=== PATIENT | female | born 1985 | race Caucasian/White ===

== ENCOUNTER → 2016-03-13 | Outpatient (REF) | payer OTHER ==
[~2016-03-13] MED LIST: /RANI15TA PO; IBUP600T26 PO; LORTTAB8 PO; PRENTAB74 PO
[2016-03-13 20:50] LABS: ALBUMIN 3.9 GM/DL (3.2-5.2); ALBUMIN/GLOBULIN RATIO 1.03 (1.00-1.93); ALKALINE PHOSPHATASE 100 U/L (45-117); ALT/SGPT 27 U/L (12-78); ANION GAP 7 MEQ/L (8-16); AST/SGOT 16 U/L (15-37); BILIRUBIN,TOTAL 0.3 MG/DL (0.2-1.0); BLOOD UREA NITROGEN 13 MG/DL (7-18); CALCIUM LEVEL 9.3 MG/DL (8.5-10.1); CARBON DIOXIDE LEVEL 27 MEQ/L (21-32); CHLORIDE LEVEL 105 MEQ/L (98-107); GLOMERULAR FILTRATION RATE > 60.0 (>60); GLUCOSE, FASTING 80 MG/DL (70-105); POTASSIUM SERUM 3.8 MEQ/L (3.5-5.1); SODIUM LEVEL 139 MEQ/L (136-145); TOTAL PROTEIN 7.7 GM/DL (6.4-8.2)
== END ==
LOC: M SFHCLERA 15:35
PROVIDERS: ATTEND Family Medicine
DX: R10.11 Right upper quadrant pain (principal); R19.7 Diarrhea, unspecified

== ENCOUNTER → 2016-03-15 | Outpatient (CLI) | payer OTHER ==
--- NOTE | 2016-03-15 10:31 | REP ---
Right upper quadrant sonography: History: Right upper quadrant pain. Comparison study: No comparison study. Findings: Scanning through the right upper quadrant of the abdomen demonstrates a normal sized, thin-walled gallbladder without evidence of stone or polyp. Common bile duct is normal measuring 0.4 cm in greatest diameter. No focal liver lesion is seen. Liver size is normal. There is evidence of mild fatty infiltration in the right lobe of the liver. No pancreatic abnormality is observed. The tail of the pancreas is obscured by abdominal gas. No right renal abnormality is seen. There is no evidence of ascites. The right kidney measures 10.7 x 5.3 x 5.0 cm. Impression: Mild fatty infiltration, otherwise negative right upper quadrant sonography. Signed by Dionicio Fuller MD 03/15/2016 10:22 A
== END ==
LOC: M LRY 08:33
PROVIDERS: ATTEND Family Medicine
DX: R10.11 Right upper quadrant pain (principal); K76.0 Fatty (change of) liver, not elsewhere classified

== ENCOUNTER → 2016-11-18 | Outpatient (REF) | payer BC ==
[2016-11-18 17:53] LABS: ALBUMIN 3.6 GM/DL (3.2-5.2); ALBUMIN/GLOBULIN RATIO 0.92 (1.00-1.93); ALKALINE PHOSPHATASE 86 U/L (45-117); ALT/SGPT 24 U/L (12-78); ANION GAP 8 MEQ/L (8-16); AST/SGOT 12 U/L (15-37); BILIRUBIN,TOTAL 0.5 MG/DL (0.2-1.0); BLOOD UREA NITROGEN 12 MG/DL (7-18); CALCIUM LEVEL 9.3 MG/DL (8.5-10.1); CARBON DIOXIDE LEVEL 28 MEQ/L (21-32); CHLORIDE LEVEL 105 MEQ/L (98-107); CHOLESTEROL LEVEL 145 MG/DL (<200); CREATININE FOR GFR 1.02 MG/DL (0.55-1.02); GLOMERULAR FILTRATION RATE > 60.0 (>60); GLUCOSE, FASTING 88 MG/DL (70-105); POTASSIUM SERUM 4.2 MEQ/L (3.5-5.1); SODIUM LEVEL 141 MEQ/L (136-145); TOTAL PROTEIN 7.5 GM/DL (6.4-8.2); TRIGLYCERIDES LEVEL 77 MG/DL (<150)
== END ==
LOC: M SFHCLERA 10:57
PROVIDERS: ATTEND Family Medicine
DX: R53.83 Other fatigue (principal); Z13.220 Encounter for screening for lipoid disorders; Z13.1 Encounter for screening for diabetes mellitus

== ENCOUNTER 2016-12-06 10:51 | Outpatient (CLI) | payer BC ==
[~2016-12-06] VITALS: Ht 152.4 cm; Wt 104.3 kg
[2016-12-06] MEDS ORDERED: NS 1,000 ML IV ONE (11:45)
[2016-12-06] MEDS ORDERED: PROPOFOL 200 MG/20 ML VIAL As Ordered ONE ×2 (12:10→12:26)
[2016-12-06] MEDS ORDERED: LIDOCAINE 2% INJ 100 MG/5 ML SDV (FOR ANES.) As Ordered ONE (12:10)
--- NOTE | 2016-12-06 12:24 | ROOR ---
Patient Name: Maura Kimbrough Procedure Date: 12/06/2016 12:10 PM Date of : 1985 Age: 31 Room: [facility] Gender: Female Note Status: Finalized Procedure: Upper GI endoscopy Indications: Generalized abdominal pain, Established Lactose intolerance, Exclusion of celiac disease, Suspected irritable bowel syndrome Providers: Christofer SONG MD Referring MD: Scarlet OLIVAS MD Requesting Provider: Medicines: Monitored Anesthesia Care Complications: No immediate complications. Procedure: Pre-Anesthesia Assessment: - The heart rate, respiratory rate, oxygen saturations, blood pressure, adequacy of pulmonary ventilation, and response to care were monitored throughout the procedure. The Endoscope was introduced through the mouth, and advanced to the third part of duodenum. The upper GI endoscopy was accomplished without difficulty. The patient tolerated the procedure well. Findings: The esophagus was normal. The stomach was normal. The examined duodenum was normal. Biopsies for histology were taken with a cold forceps in the third portion of the duodenum for evaluation of celiac disease. Impression: - Normal esophagus. - Normal stomach. - Normal examined duodenum. - Biopsies were taken with a cold forceps for evaluation of celiac disease. Recommendation: - Observe patient's clinical course. - Lactose free diet. - Telephone endoscopist for pathology results in 2 weeks. Christofer Song MD Christofer SONG MD 12/06/2016 12:23:56 PM This report has been signed electronically. Number of Addenda: 0 Note Initiated On: 12/06/2016 12:10 PM Estimated Blood Loss: Estimated blood loss: none.
--- NOTE | 2016-12-06 12:38 | ROOR ---
Patient Name: Maura Kimbrough Procedure Date: 12/06/2016 12:10 PM Date of : 1985 Age: 31 Room: [facility] Gender: Female Note Status: Finalized Procedure: Colonoscopy Indications: Generalized abdominal pain, Suspected irritable bowel syndrome, Irritable bowel syndrome with diarrhea, Established Lactose intolerance, r/o Inflammatory bowel disease Providers: Christofer SONG MD Referring MD: Scarlet OLIVAS MD Requesting Provider: Medicines: Monitored Anesthesia Care Complications: No immediate complications. Procedure: Pre-Anesthesia Assessment: - The heart rate, respiratory rate, oxygen saturations, blood pressure, adequacy of pulmonary ventilation, and response to care were monitored throughout the procedure. The Colonoscope was introduced through the anus and advanced to 10 cm into the ileum. The colonoscopy was performed without difficulty. The patient tolerated the procedure well. The quality of the bowel preparation was good. Findings: The perianal and digital rectal examinations were normal. The colon (entire examined portion) appeared normal. The terminal ileum appeared normal. (Exam: Complete, Prep: Good or Excellent.) Impression: - (Exam: Complete, Prep: Good or Excellent.) - The entire examined colon is normal. - The examined portion of the ileum was normal. - Small internal hemorrhoids - No specimens collected. Recommendation: - Lactose free diet. - Try low gluten diet. - Continue present medications. Christofer Song MD Christofer SONG MD 12/06/2016 12:37:48 PM This report has been signed electronically. Number of Addenda: 0 Note Initiated On: 12/06/2016 12:10 PM Estimated Blood Loss: Estimated blood loss: none.
[2016-12-06 13:00] VITALS: BP 118/91
== END 2016-12-06 13:22 | disposition home or self-care (01) ==
LOC: M OPP 10:51
PROVIDERS: ATTEND Internal Medicine Gastroenterology
DX: R10.84 Generalized abdominal pain (principal); R19.7 Diarrhea, unspecified; K64.8 Other hemorrhoids; Z91.011 Allergy to milk products; Z87.891 Personal history of nicotine dependence; Z80.9 Family history of malignant neoplasm, unspecified; Z79.899 Other long term (current) drug therapy

== ENCOUNTER → 2017-04-15 | Outpatient (REF) | payer BC ==
[2017-04-15 17:58] LABS: HCG, SERUM QUANTITATIVE 4750 MIU/ML
[2017-04-15 18:22] LABS: HEMATOCRIT 42.5 % (36.0-47.0); HEMOGLOBIN 14.3 g/dl (12.0-16.0); MEAN CORPUSCULAR HEMOGLOBIN 30.4 pg (27.0-33.0); MEAN CORPUSCULAR HGB CONC 33.6 g/dl (32.0-36.5); MEAN CORPUSCULAR VOLUME 90.4 fl (80.0-96.0); PLATELET COUNT, AUTOMATED 369 10^3/uL (150-450); RED CELL DISTRIBUTION WIDTH 12.9 % (11.5-14.5); WHITE BLOOD COUNT 11.5 10^3/uL (4.0-10.0)
[2017-04-16 00:27] LABS: CHLAMYDIA DNA AMPLIFICATION NEGATIVE (NEGATIVE); GC DNA AMPLIFICATION NEGATIVE (NEGATIVE)
[2017-04-16 10:06] LABS: RUBELLA IgG QUALITATIVE IMMUNE (IMMUNE)
[2017-04-16 10:22] LABS: HBsAg Prenatal NEGATIVE (NEGATIVE)
[2017-04-16 10:35] LABS: HEPATITIS C VIRUS ABY INDEX 0.1 INDEX (<0.8)
[2017-04-16 10:36] LABS: HIV 1&2 SCREEN CENTAUR NEGATIVE (NEGATIVE)
== END ==
LOC: M LAB REF 16:25
DX: O36.80X0 Pregnancy with inconclusive fetal viability, not applicable or unspecified (principal); Z3A.00 Weeks of gestation of pregnancy not specified
CPT/HCPCS: 86762

== ENCOUNTER → 2017-05-27 | Outpatient (REF) | payer BC, MEDICAID | LOC: M LAB REF 12:49 | DX: R30.0 Dysuria (principal) | CPT/HCPCS: 87086 ==

== ENCOUNTER → 2017-06-23 | Outpatient (CLI) | payer BC, MEDICAID ==
[2017-06-23 10:32] LABS: HEMATOCRIT 38.9 % (36.0-47.0); HEMOGLOBIN 13.1 g/dl (12.0-15.5); MEAN CORPUSCULAR HGB CONC 33.7 g/dl (32.0-36.5); MEAN CORPUSCULAR VOLUME 89.2 fl (80.0-96.0); PLATELET COUNT, AUTOMATED 320 10^3/uL (150-450); RED BLOOD COUNT 4.36 10^6/uL (4.00-5.40); RED CELL DISTRIBUTION WIDTH 12.6 % (11.5-14.5); WHITE BLOOD COUNT 10.8 10^3/uL (4.0-10.0)
[2017-06-23 10:56] LABS: URINE TOTAL PROTEIN 11.2 MG/DL (0-12)
[2017-06-23 10:59] LABS: ALT/SGPT 22 U/L (12-78); AST/SGOT 16 U/L (7-37); BILIRUBIN,TOTAL 0.3 MG/DL (0.2-1.0); CREATININE FOR GFR 0.63 MG/DL (0.55-1.30); GLOMERULAR FILTRATION RATE > 60.0 (>60); LDH LACTATE DEHYDROGENASE 132 U/L (84-246); URIC ACID 3.3 MG/DL (2.6-6.0)
[2017-06-23 11:09] LABS: TOTAL VOLUME, URINE 1000 ML
== END ==
LOC: M LAB 09:38
DX: I10 Essential (primary) hypertension (principal)
CPT/HCPCS: 84460

== ENCOUNTER → 2017-09-18 | Outpatient (CLI) | payer BC, MEDICAID ==
[2017-09-18 13:13] LABS: GLUCOSE CHALLENGE TEST 1 HOUR 146 MG/DL (LESS THAN 140)
== END ==
LOC: M LAB 11:01
DX: Z34.82 Encounter for supervision of other normal pregnancy, second trimester (principal); Z36.89 Encounter for other specified antenatal screening
CPT/HCPCS: 82950

== ENCOUNTER → 2017-09-26 | Outpatient (CLI) | payer BC, MEDICAID ==
[2017-09-26 08:19] LABS: HEMATOCRIT 37.5 % (36.0-47.0); HEMOGLOBIN 12.9 g/dl (12.0-15.5); MEAN CORPUSCULAR HEMOGLOBIN 30.8 pg (27.0-33.0); MEAN CORPUSCULAR HGB CONC 34.4 g/dl (32.0-36.5); MEAN CORPUSCULAR VOLUME 89.5 fl (80.0-96.0); PLATELET COUNT, AUTOMATED 277 10^3/uL (150-450); RED BLOOD COUNT 4.19 10^6/uL (4.00-5.40); RED CELL DISTRIBUTION WIDTH 13.5 % (11.5-14.5); WHITE BLOOD COUNT 11.5 10^3/uL (4.0-10.0)
[2017-09-26 08:30] LABS: GLUCOSE, FASTING 98 MG/DL (LESS THAN 95)
[2017-09-26 10:04] LABS: 1 HR GLUCOSE 193 MG/DL (LESS THAN 180)
[2017-09-26 10:39] LABS: 2 HR GLUCOSE 133 MG/DL (LESS THAN 155)
[2017-09-26 11:28] LABS: 3 HR GLUCOSE 105 MG/DL (LESS THAN 140)
== END ==
LOC: M LAB 07:18
DX: O99.810 Abnormal glucose complicating pregnancy (principal); Z3A.00 Weeks of gestation of pregnancy not specified
CPT/HCPCS: 82951

== ENCOUNTER → 2017-11-13 | Outpatient (REF) | payer BC, MEDICAID | LOC: M LAB REF 13:31 | DX: O09.893 Supervision of other high risk pregnancies, third trimester (principal) | CPT/HCPCS: 87081 ==

== ENCOUNTER 2017-12-09 05:25 | Inpatient (IN) | payer BC, MEDICAID ==
[2017-12-09 06:13] LABS: HEMATOCRIT 38.2 % (36.0-47.0); MEAN CORPUSCULAR HEMOGLOBIN 30.2 pg (27.0-33.0); MEAN CORPUSCULAR VOLUME 88.6 fl (80.0-96.0); PLATELET COUNT, AUTOMATED 299 10^3/uL (150-450); RED BLOOD COUNT 4.31 10^6/uL (4.00-5.40); WHITE BLOOD COUNT 10.1 10^3/uL (4.0-10.0)
[2017-12-09] MEDS ORDERED: LR 1,000 ML IV (06:45)
[2017-12-09] MEDS: LR 1,000 ML IV ×2 (06:45→13:39)
[2017-12-09] MEDS: BICITRA 30ML SOLN UDC PO (07:18)
[2017-12-09] MEDS ORDERED: ONDANSETRON 4MG/2ML VIAL (J2405) IV ×3 (07:45→09:30)
[2017-12-09] MEDS ORDERED: NORCO, ANEXSIA 5/325MG TABLET (HYDROcodone/ACETAMINOPHEN) PO (07:45)
[2017-12-09] MEDS ORDERED: MOM 30ML SUSPENSION UDC PO (07:45)
[2017-12-09] MEDS ORDERED: METHYLERGONOVINE MALEATE 0.2 MG TAB PO (07:45)
[2017-12-09] MEDS ORDERED: NALBUPHINE HCL 10 MG/ML AMP (J2300) IV (07:58)
[2017-12-09] MEDS ORDERED: METOCLOPRAMIDE INJ 10MG/2ML VIAL (J2765) IV (07:58)
[2017-12-09] MEDS ORDERED: NALOXONE INJ 0.4 MG/1 ML VIAL (J2310) IV ×2 (07:58)
[2017-12-09] MEDS ORDERED: OXYTOCIN INJ 10 UNITS/ML VIAL (J2590) As Ordered (08:22)
[2017-12-09] MEDS ORDERED: KETOROLAC 60 MG/2 ML VIAL (J1885) As Ordered (08:22)
[2017-12-09] MEDS ORDERED: PHENYLephrine HCL 500 MCG/5 ML (100MCG/ML) SYRINGE (J2370) As Ordered (08:22)
[2017-12-09] MEDS ORDERED: MORPHINE PRES-FREE INJ 10 MG/10 ML VIAL (J2274) As Ordered (08:22)
[2017-12-09] MEDS ORDERED: ONDANSETRON 4MG/2ML VIAL (J2405) As Ordered (08:22)
[2017-12-09] MEDS ORDERED: dexameTHASONE 4 MG/ML 1ML VIAL (J1100) As Ordered (08:22)
[2017-12-09 08:51] LABS: CORD GAS ABE V -2.3; CORD GAS HCO3 V 23.7 MEQ/L; CORD GAS O2 SAT V 86.5 %; CORD GAS PCO2 V 45.2 mmHg; CORD GAS PH V 7.338 UNITS; CORD GAS PO2 V 44.1 mmHg; CORD GAS SBC V 22.3 MEQ/L; CORD GAS TCO2 V 25.1 MEQ/L
[2017-12-09 08:52] LABS: CORD GAS ABE A -4.3; CORD GAS HCO3 A 23.7 MEQ/L; CORD GAS O2 SAT A 39.3 %; CORD GAS PCO2 A 55.1 mmHg; CORD GAS PH A 7.251 UNITS; CORD GAS PO2 A 19.5 mmHg; CORD GAS SBC A 19.6 MEQ/L; CORD GAS TCO2 A 25.4 MEQ/L
[2017-12-09] MEDS ORDERED: fentaNYL 100 MCG/2 ML INJECTION (J3010) IV (09:30)
[2017-12-09] MEDS: LABETALOL 200 MG TAB PO ×2 (09:42→21:13)
[2017-12-09] MEDS: PRENATAL VITAMINS CHEWABLE TABLET PO (13:30)
[2017-12-09] MEDS: DOCUSATE SODIUM 100 MG CAP PO ×2 (13:30→21:13)
[2017-12-09] MEDS: MEASLES,MUMPS,RUBELLA VACCINE INJ (MMR-II) (90707) SC (13:32)
[2017-12-09] MEDS: RHOGAM 300 MCG (1500 IU) INJ (J2790) IM (13:32)
[2017-12-09] MEDS: OXYTOCIN DRIP 30 UNITS in APPROPRIATE DILUENT 1 EA IV (13:42)
[2017-12-09] MEDS: IBUPROFEN 800 MG TAB PO (16:42)
[2017-12-10] MEDS: IBUPROFEN 800 MG TAB PO ×3 (01:03→17:25)
[2017-12-10 06:58] LABS: HEMATOCRIT 30.7 % (36.0-47.0); MEAN CORPUSCULAR HEMOGLOBIN 30.2 pg (27.0-33.0); MEAN CORPUSCULAR HGB CONC 33.2 g/dl (32.0-36.5); MEAN CORPUSCULAR VOLUME 90.8 fl (80.0-96.0); PLATELET COUNT, AUTOMATED 234 10^3/uL (150-450); RED BLOOD COUNT 3.38 10^6/uL (4.00-5.40); RED CELL DISTRIBUTION WIDTH 13.3 % (11.5-14.5); WHITE BLOOD COUNT 12.2 10^3/uL (4.0-10.0)
[2017-12-10 07:02] LABS: HEMOGLOBIN 10.2 g/dl (12.0-15.5)
[2017-12-10] MEDS: PRENATAL VITAMINS CHEWABLE TABLET PO (08:33)
[2017-12-10] MEDS: DOCUSATE SODIUM 100 MG CAP PO ×2 (08:33→21:00)
[2017-12-10] MEDS: LABETALOL 200 MG TAB PO ×2 (08:34→21:16)
[2017-12-10] MEDS: NORCO, ANEXSIA 5/325MG TABLET (HYDROcodone/ACETAMINOPHEN) PO ×2 (14:01→19:26)
[2017-12-11] MEDS: IBUPROFEN 800 MG TAB PO ×2 (01:14→09:24)
[2017-12-11] MEDS: DOCUSATE SODIUM 100 MG CAP PO (08:20)
[2017-12-11] MEDS: NORCO, ANEXSIA 5/325MG TABLET (HYDROcodone/ACETAMINOPHEN) PO (08:21)
[2017-12-11] MEDS: PRENATAL VITAMINS CHEWABLE TABLET PO (08:21)
[2017-12-11] MEDS: LABETALOL 200 MG TAB PO (09:25)
== END 2017-12-11 11:50 | disposition home or self-care (01) | DRG 540 ==
LOC: M LDI 05:25 → M LDPACU 09:58 → M OBS 10:29
PROVIDERS: Obstetrics & Gynecology
PROC: 10D00Z1 Extraction of Products of Conception, Low, Open Approach (ICD-10-PCS; principal; 2017-12-09 07:30)
DX: O34.211 Maternal care for low transverse scar from previous cesarean delivery (principal); O24.425 Gestational diabetes mellitus in childbirth, controlled by oral hypoglycemic drugs; Z3A.39 39 weeks gestation of pregnancy; Z37.0 Single live birth

== ENCOUNTER → 2018-03-31 | Outpatient (REF) | payer BC, MEDICAID ==
[~2018-03-31] MED LIST changes: +GLIP5TAB8 PO; +IBUP-1114 PO; +LABE10TAB PO; +OMEP20CA3 PO; +OXYC1TAB23 PO; +PRENTAB55 PO
== END ==
LOC: M LAB REF 17:22
PROVIDERS: ATTEND Obstetrics & Gynecology
DX: R30.0 Dysuria (principal); R35.0 Frequency of micturition

== ENCOUNTER → 2018-06-04 | Outpatient (REF) | payer BC, MEDICAID ==
[~2018-06-04] MED LIST changes: -/RANI15TA PO; +RANI1TAB17 PO
[2018-06-04 11:56] LABS: CHOLESTEROL RISK RATIO 3.608 (<5); FREE T4 0.76 NG/DL (0.76-1.46); THYROID STIMULATING HORMONE 1.27 uIU/ML (0.358-3.740)
== END ==
LOC: M SFHCLERA 09:00
PROVIDERS: ATTEND Family Medicine
DX: E66.01 Morbid (severe) obesity due to excess calories (principal)